=== PATIENT | male | born 1995 | race Caucasian/White ===

== ENCOUNTER 2016-10-22 21:08 | Emergency (ER) | payer OTHER ==
[~2016-10-22] VITALS: Ht 180.3 cm; Wt 84.1 kg
[2016-10-22 21:17] VITALS: BP 134/78; PULSE 102; TEMP 98.7
[2016-10-22] MEDS ORDERED: LEXAPRO20 MG PO (21:21)
== END 2016-10-22 22:17 | disposition home or self-care (01) ==
LOC: COL.ER 21:08 → EDBD 21:26 → COL.ER 21:26
DX: R23.2 Flushing (principal); R00.0 Tachycardia, unspecified; R06.02 Shortness of breath; F32.9 Major depressive disorder, single episode, unspecified